=== PATIENT | female | born 1970 | race Caucasian/White ===

== ENCOUNTER 2017-02-27 07:39 | Emergency (ER) ==
[2017-02-27 07:41] VITALS: BMI 24.3
[2017-02-27 07:49] VITALS: BP 148/95; TEMP 96.9
[2017-02-27] MEDS ORDERED: DECADRON 4 MG/ML SDV IM STA (07:50)
[2017-02-27] MEDS ORDERED: BENADRYL IM STA (07:50)
--- NOTE | 2017-02-27 07:56 | ED.PDOC ---
General ED Provider: Dr. NIEVES ALVA Chief Complaint: Non-specific Complaint Stated Complaint: rash on the chest, arms, legs Time Seen by Physician: 08:00 (was in an abandoned building has a puritic rash) Mode of Arrival: Walk-In Information Source: Patient Exam Limitations: No limitations Nursing and Triage Documentation Reviewed and Agree: Yes (spent sometine in aabandoned building .) Skin Complaint Exam - Skin Rash/Itching Complaint/Exam Onset/Duration: 2 days Symptoms Are: Still present Initial Severity: Moderate Current Severity: Moderate Location: arms, legs chest Potential Exposures: Reports: Unknown Aggravating: Reports: None Alleviating: Reports: None Associated Signs and Symptoms: Denies: Difficulty breathing, Fever, Chills Skin Findings: Present: Urticaria Differential Diagnoses: Allergic Reaction, Contact Dermatitis Review of Systems - Review Of Systems Constitutional: Reports: No symptoms Eyes: Reports: No symptoms Ears, Nose, Mouth, Throat: Reports: No symptoms Respiratory: Reports: No symptoms Cardiac: Reports: No symptoms GI: Reports: No symptoms : Reports: No symptoms Musculoskeletal: Reports: No symptoms Skin: Reports: Rash Neurological: Reports: No symptoms Endocrine: Reports: No symptoms Hematologic/Lymphatic: Reports: No symptoms All Other Systems: Reviewed and Negative Past Medical History - Past Medical History Previously Healthy: Yes Endocrine: Reports: None Cardiovascular: Reports: None Respiratory: Reports: None Hematological: Reports: None Gastrointestinal: Reports: None Genitourinary: Reports: None Neuro/Psych: Reports: Anxiety, Depression Musculoskeletal: Reports: Arthritis Cancer: Reports: None Last Menstrual Period: n/a - Surgical History General Surgical History: Reports: Hysterectomy, Other (Brain aneurysm) - Family History Family History: Reports: Unknown - Social History Smoking Status: Current every day smoker Hx Substance Use: No Alcohol Screening: None Physical Exam - Physical Exam Appearance: Well-appearing, No pain distress, Well-nourished Eyes: BRANDON, EOMI, Conjunctiva clear ENT: Ears normal, Nose normal, Oropharynx normal Respiratory: Airway patent, Breath sounds clear, Breath sounds equal, Respirations nonlabored Cardiovascular: RRR, Pulses normal, No rub, No murmur GI/: Soft, Nontender, No masses, Bowel sounds normal, No Organomegaly Musculoskeletal: Normal strength, ROM intact, No edema, No calf tenderness Skin: Warm, Dry (several abrasion noted a urticarial rrash noted ) Neurological: Sensation intact, Motor intact, Reflexes intact, Cranial nerves intact, Alert, Oriented Psychiatric: Affect appropriate, Mood appropriate Critical Care Note - Critical Care Note Total Time (mins): 0 Course - Course Orders, Labs, Meds: Orders Category Date Time Status Dexamethasone 4 mg/ml Inj [Decadron 4 mg/ml Sdv] MEDS 02/27/17 07:50 Stat 4 mg IM ONCE STA Diphenhydramine Inj [Benadryl] MEDS 02/27/17 07:50 Stat 25 mg IM ONCE STA Medications Discontinued Medications Generic Name Dose Route Start Last Admin Trade Name Dayna PRN Reason Stop Dose Admin Dexamethasone Sodium Phosphate 4 mg 02/27/17 07:50 Decadron 4 Mg/Ml Sdv IM 02/27/17 07:51 ONCE STA Diphenhydramine HCl 25 mg 02/27/17 07:50 Benadryl IM 02/27/17 07:51 ONCE STA Vital Signs: Temp Pulse Resp BP Pulse Ox 02/27/17 07:42 96.9 F L 100 H 16 148/95 H 94 L Departure - Departure Time of Disposition: 07:58 (pt refused labs ) Disposition: HOME SELF-CARE Discharge Problem: Rash due to allergy Contact dermatitis Qualifiers: Contact dermatitis type: allergic Contact dermatitis trigger: unspecified trigger Qualifier Code: (L23.9) Allergic contact dermatitis, unspecified cause Instructions: Acute Rash (ED) Condition: Good Pt referred to PMD for follow-up: No Prescriptions: Prednisone 20 mg PO DAILYWM #4 tablet Allergies/Adverse Reactions: Allergies No Known Allergies Allergy (Verified 02/27/17 07:45) Home Medications: Ambulatory Orders Gabapentin 600 mg PO TID 09/12/13 Ibuprofen 600 mg PO BID 09/12/13 Prednisone 20 mg PO DAILYWM #4 tablet 02/27/17 Disposition Discussed With: Patient
== END 2017-02-27 08:24 | disposition home or self-care (01) ==
LOC: ED 07:39
DX: L23.9 Allergic contact dermatitis, unspecified cause (principal); F17.210 Nicotine dependence, cigarettes, uncomplicated
CPT/HCPCS: 96372; 99282

== ENCOUNTER 2017-12-02 15:48 | Outpatient (CLI) ==
--- NOTE | 2017-12-02 16:30 | DI ---
EXAM: RIGHT FOOT, 3 VIEWS HISTORY: Right foot pain FINDINGS: Bone and joint structures appear normal. No displaced fracture or joint dislocation is s een. There is no joint effusion. Soft tissues within normal limits. IMPRESSION: Within normal limits.
== END 2017-12-02 15:49 | disposition home or self-care (01) ==
LOC: RAD 15:48
PROVIDERS: ATTEND Nurse Practitioner Family
DX: M79.671 Pain in right foot (principal); S99.921A Unspecified injury of right foot, initial encounter; Z00.00 Encounter for general adult medical examination without abnormal findings

== ENCOUNTER 2017-12-04 16:34 | Emergency (ER) ==
[2017-12-04 16:40] VITALS: BP 112/74; TEMP 99.1; BMI 23.6
== END 2017-12-04 18:13 | disposition left against medical advice (07) ==
LOC: ED 16:34
DX: S99.921A Unspecified injury of right foot, initial encounter (principal); W22.8XXA Striking against or struck by other objects, initial encounter; F17.210 Nicotine dependence, cigarettes, uncomplicated
CPT/HCPCS: 99281

== ENCOUNTER 2018-01-24 00:10 | Outpatient (CLI) ==
[2017-12-20 17:45] VITALS: BMI 23.6
== END 2018-01-24 00:11 | disposition short-term general hospital (02) ==
LOC: AMBL 00:10
PROVIDERS: ATTEND Family Medicine
DX: R45.851 Suicidal ideations (principal)

== ENCOUNTER 2018-03-04 15:14 | Outpatient (CLI) ==
[2017-12-20 17:45] VITALS: BMI 23.6
== END 2018-03-04 15:15 | disposition home or self-care (01) ==
LOC: RHC-LAB 15:14
PROVIDERS: ATTEND Nurse Practitioner Family
DX: Z00.00 Encounter for general adult medical examination without abnormal findings (principal)
CPT/HCPCS: 36415; 80053; 80061; 84443; 85025

== ENCOUNTER 2018-09-11 17:46 | Emergency (ER) ==
[2018-09-11 18:04] VITALS: TEMP 98; BMI 23.7
[2018-09-11 18:07] VITALS: BP 113/87
--- NOTE | 2018-09-11 18:07 | ED.PDOC ---
General ED Provider: Dr. NIEVES ALVA Chief Complaint: Behavioral Complaint Stated Complaint: alcohol and substance abuse , pt stated she would like to get help and go through a rehab program Time Seen by Physician: 18:00 (seen with Anitra at all times denied suicidal ideation) Mode of Arrival: Walk-In Information Source: Patient Exam Limitations: No limitations Primary Care Provider: CARLOS MULLINS Nursing and Triage Documentation Reviewed and Agree: Yes Does patient meet sepsis criteria?: No System Inflammatory Response Syndrome: Not Applicable Sepsis Protocol: For patient's 13 years and over: Temp is 96.8 and below OR 101 and greater Pulse >90 BPM Resp >20/minute Acutely Altered Mental Status Are patient's symptoms suggestive of a new infection, such as: -Pneumonia -Skin, Soft Tissue -Endocarditis -UTI -Bone, Joint Infection -Implantable Device -Acute Abdominal Infection -Wound Infection -Meningitis -Blood Stream Catheter Infection -Unknown Psychological Complaint Exam - Substance Abuse/Use Complaint/Exam Patient Complains Of Substance Abuse Of: Other (alcohol pain meds , pt has lost her kids([id number]) to [employer] ) Patient Complains Of Substance Withdrawal Of: Alcohol, Other Onset/Duration: chronic issue Abuse Began: chronic attends a pain mangement program Increased Use Since: recently after loss of custody of her twins Timing: Daily Initial Severity: Moderate Current Severity: Moderate Character: Present: Depressed, Anxious, Frustrated Aggravating: Reports: Recent stress (see above) Alleviating: Reports: None Associated Signs And Symptoms: Reports: Sleep disturbance, Appetite change, Social withdrawal, Social isolation, Agitated. Denies: Hostile, Confused, Hallucinating, Paranoid behavior, Palpitations, Short of air, Chest pain, Delirium Tremens, Diaphoretic, Tremulous, Nausea, Vomiting, Diarrhea Related History: Denies: Suicidal thoughts, Suicidal plan, Suicidal gestures, Homicidal thoughts, Homicidal plan, Homicidal gestures, Prior attempts Last Used Alcohol: today Last Used Drugs: 1 day ago does not abuse IV MEDS Completed Suicide Risk Factors: , Living alone Patient In Custody Of Police: No Social Withdrawal Present: Yes Social Isolation Present: Yes Prior Suicide Attempt: No Injury From Prior Suicide Attempt: No Patient Uncooperative For Exam: No Mood: Present: Agitated, Anxious Appearance: Present: Clean Thought Process: Present: Flight of ideas Insight: Present: Limited Memory: Impaired Judgement: Impaired Danger To Others: Yes Patient Medically Stable For: Psych evaluation Differential Diagnoses: Drug Abuse, Anxiety, Metabolic Disorder, Suicidal Risk Quality Indicator For Non-Traumatic Chest Pain/Syncope: EKG Performed Review of Systems - Review Of Systems Constitutional: Reports: No symptoms Eyes: Reports: No symptoms Ears, Nose, Mouth, Throat: Reports: No symptoms Respiratory: Reports: No symptoms Cardiac: Reports: No symptoms GI: Reports: No symptoms : Reports: No symptoms Musculoskeletal: Reports: No symptoms Skin: Reports: No symptoms Neurological: Reports: Emotional problems Endocrine: Reports: No symptoms Hematologic/Lymphatic: Reports: No symptoms All Other Systems: Reviewed and Negative Past Medical History - Past Medical History Previously Healthy: Yes Endocrine: Reports: None Cardiovascular: Reports: None Respiratory: Reports: None Hematological: Reports: None Gastrointestinal: Reports: None Genitourinary: Reports: None Neuro/Psych: Reports: Anxiety, Depression Musculoskeletal: Reports: Arthritis Cancer: Reports: None Last Menstrual Period: hysterectomy - Surgical History General Surgical History: Reports: Hysterectomy, Other (Brain aneurysm) - Family History Family History: Reports: Unknown - Social History Smoking Status: Current every day smoker Hx Substance Use: Yes (Meth, ETOH) Alcohol Screening: None Physical Exam - Physical Exam Appearance: Well-appearing, No pain distress, Well-nourished Eyes: BRANDON, EOMI, Conjunctiva clear ENT: Ears normal, Nose normal, Oropharynx normal Respiratory: Airway patent, Breath sounds clear, Breath sounds equal, Respirations nonlabored Cardiovascular: RRR, Pulses normal, No rub, No murmur GI/: Soft, Nontender, No masses, Bowel sounds normal, No Organomegaly Musculoskeletal: Normal strength, ROM intact, No edema, No calf tenderness Skin: Warm, Dry, Normal color Neurological: Sensation intact, Motor intact, Reflexes intact, Cranial nerves intact, Alert, Oriented Psychiatric: Affect appropriate, Mood appropriate Critical Care Note - Critical Care Note Total Time (mins): 0 Course - Course Hematology/Chemistry: 09/11/18 18:35 09/11/18 18:35 Orders, Labs, Meds: Lab Review 09/11/18 09/11/18 09/11/18 18:35 18:35 18:35 WBC 12.87 H RBC 4.45 Hgb 14.3 Hct 41.2 MCV 92.6 MCH 32.1 H MCHC 34.7 RDW Coeff of Miracle 12.3 Plt Count 244 Immature Gran % (Auto) 0.2 Neut % (Auto) 68.6 Lymph % (Auto) 19.7 Lyman % (Auto) 7.5 Eos % (Auto) 3.7 Baso % (Auto) 0.3 Immature Gran # (Auto) 0.0 Neut # (Auto) 8.8 H Lymph # (Auto) 2.5 Lyman # (Auto) 1.0 Eos # (Auto) 0.5 Baso # (Auto) 0.0 Sodium 139.1 Potassium 3.68 Chloride 104.2 Carbon Dioxide 30.3 H Anion Gap 8.28 BUN 10.3 Creatinine 0.58 L Estimated GFR (MDRD) 111.00 BUN/Creatinine Ratio 17.75 Glucose 93.2 Calcium 8.95 Total Bilirubin 0.37 AST 44.2 H ALT 28.0 Alkaline Phosphatase 51.8 Total Protein 7.86 Albumin 4.21 Globulin 3.65 Albumin/Globulin Ratio 1.15 Serum , Qual Urine Color Urine Clarity Urine pH Ur Specific [place] Urine Protein Urine Glucose (UA) Urine Ketones Urine Blood Urine Nitrite Urine Bilirubin Urine Urobilinogen Ur Leukocyte Esterase Salicylate Level mg/dL < 1.00 Urine Opiates Screen Negative Ur Oxycodone Screen Negative Urine Methadone Screen Negative Ur Propoxyphene Screen Negative Acetaminophen < 10.0 L Ur Barbiturates Screen Negative U Tricyclic Antidepress Negative Ur Phencyclidine Scrn Negative Ur Amphetamine Screen Positive U Methamphetamines Scrn Negative U Benzodiazepines Scrn Negative Urine Cocaine Screen Negative U Cannabinoids Screen Negative Plasma/Serum Alcohol 124.5 H 09/11/18 09/11/18 18:35 18:35 WBC RBC Hgb Hct MCV MCH MCHC RDW Coeff of Miracle Plt Count Immature Gran % (Auto) Neut % (Auto) Lymph % (Auto) Lyman % (Auto) Eos % (Auto) Baso % (Auto) Immature Gran # (Auto) Neut # (Auto) Lymph # (Auto) Lyman # (Auto) Eos # (Auto) Baso # (Auto) Sodium Potassium Chloride Carbon Dioxide Anion Gap BUN Creatinine Estimated GFR (MDRD) BUN/Creatinine Ratio Glucose Calcium Total Bilirubin AST ALT Alkaline Phosphatase Total Protein Albumin Globulin Albumin/Globulin Ratio Serum , Qual Negative Urine Color Yellow Urine Clarity Clear Urine pH 6.5 Ur Specific [place] <=1.005 Urine Protein Negative Urine Glucose (UA) Negative Urine Ketones Negative Urine Blood Negative Urine Nitrite Negative Urine Bilirubin Negative Urine Urobilinogen 0.2 Ur Leukocyte Esterase Negative Salicylate Level mg/dL Urine Opiates Screen Ur Oxycodone Screen Urine Methadone Screen Ur Propoxyphene Screen Acetaminophen Ur Barbiturates Screen U Tricyclic Antidepress Ur Phencyclidine Scrn Ur Amphetamine Screen U Methamphetamines Scrn U Benzodiazepines Scrn Urine Cocaine Screen U Cannabinoids Screen Plasma/Serum Alcohol Orders Category Date Time Status EKG-(ED ONLY) Stat CARDIO 09/11/18 18:13 Completed Mental Health Consult [ED MENTAL HEALTH CONSULT] .ONCE EMERGENCY 09/11/18 19: 18 Active ACETAMINOPHEN Stat LAB 09/11/18 18:35 Completed BLOOD ALCOHOL Stat LAB 09/11/18 18:35 Completed CBC W/ AUTO DIFF Stat LAB 09/11/18 18:35 Completed COMPREHENSIVE METABOLIC PANEL Stat LAB 09/11/18 18:35 Completed DRUG SCREEN, URINE, RAPID Stat LAB 09/11/18 18:35 Completed SALICYLATE Stat LAB 09/11/18 18:35 Completed SERUM Stat LAB 09/11/18 18:35 Completed URINALYSIS C & S IF INDICATED Stat LAB 09/11/18 18:35 Completed Vital Signs: Temp Pulse Resp BP Pulse Ox 09/11/18 18:13 104 H 98 09/11/18 18:07 113/87 09/11/18 17:48 98.0 F 120 H 20 153/111 H 99 Departure - Departure Time of Disposition: 19:00 Disposition: HOME SELF-CARE Discharge Problem: Problem behavior, Alcohol abuse, Substance abuse Instructions: Abuse of Alcohol (ED), Opioid Withdrawal (ED), Medical Clearance for Substance Abuse Treatment (ED), Narcotic Withdrawal (ED), Narcotic Use Disorder (ED), Opioid Use Disorder (ED) Condition: Good Pt referred to PMD for follow-up: Yes IPMP verified?: No Additional Instructions: Please call your Family Physician as soon as possible to schedule a follow-up appointment. Allergies/Adverse Reactions: Allergies No Known Allergies Allergy (Verified 12/04/17 16:40) Home Medications: Ambulatory Orders Gabapentin 600 mg PO TID 09/12/13 Ibuprofen 600 mg PO BID 09/12/13
== END 2018-09-11 22:58 | disposition home or self-care (01) ==
LOC: ED 17:46
DX: F19.10 Other psychoactive substance abuse, uncomplicated (principal); F10.10 Alcohol abuse, uncomplicated; F17.210 Nicotine dependence, cigarettes, uncomplicated; R46.89 Other symptoms and signs involving appearance and behavior
CPT/HCPCS: 36415; 80053; 80306; 80307; 81001; 84703; 85025; 93005; 93010; 99284

== ENCOUNTER 2018-09-17 06:09 | Outpatient (CLI) | END 2018-09-17 06:23 | disposition short-term general hospital (02) | LOC: AMBL 06:09 | PROVIDERS: ATTEND Family Medicine | DX: R45.851 Suicidal ideations (principal) ==

== ENCOUNTER 2018-11-16 15:29 | Outpatient (CLI) ==
--- NOTE | 2018-11-16 16:19 | DI ---
EXAM: Two views of the left hip. History: Left hip pain and trauma. Comparison: Left hip radiograph 05/22/2016 Findings: No acute fracture or dislocation. Left hip joint space is preserved. Impression: No acute osseous abnormality and no degenerative joint disease of the left hip
== END 2018-11-16 15:30 | disposition home or self-care (01) ==
LOC: LAB 15:29
PROVIDERS: ATTEND Nurse Practitioner Family
DX: M25.552 Pain in left hip (principal); Z86.19 Personal history of other infectious and parasitic diseases
CPT/HCPCS: 36415; 80074; 86708; 87522

== ENCOUNTER 2018-12-02 04:54 | Emergency (ER) ==
[2018-12-02 05:10] VITALS: BMI 24.4
--- NOTE | 2018-12-02 05:49 | ED.PDOC ---
General ED Provider: Dr. ZAIRA SILVA-ER Chief Complaint: Psychiatric Complaint Stated Complaint: im depressed Time Seen by Physician: 04:55 Mode of Arrival: Walk-In Information Source: Patient Exam Limitations: No limitations Primary Care Provider: CARLOS MULLINS Nursing and Triage Documentation Reviewed and Agree: Yes Does patient meet sepsis criteria?: No If yes, has appropriate treatment been initiated?: No System Inflammatory Response Syndrome: Not Applicable Sepsis Protocol: For patient's 13 years and over: Temp is 96.8 and below OR 101 and greater Pulse >90 BPM Resp >20/minute Acutely Altered Mental Status Are patient's symptoms suggestive of a new infection, such as: -Pneumonia -Skin, Soft Tissue -Endocarditis -UTI -Bone, Joint Infection -Implantable Device -Acute Abdominal Infection -Wound Infection -Meningitis -Blood Stream Catheter Infection -Unknown Psychological Complaint Exam - Psychiatric Complaint/Exam Patient Complains Of: Present: Depression Symptoms Are: Still present Initial Severity: Mild Current Severity: Mild Character: Present: Depressed Associated Signs And Symptoms: Reports: Sleep disturbance Patient In Custody Of Police: No Social Withdrawal Present: No Social Isolation Present: No Prior Suicide Attempt: No Injury From Prior Suicide Attempt: No Patient Uncooperative For Exam: No Mood: Present: Depressed Thought Process: Present: Logical Insight: Present: Good Memory: Intact Judgement: Normal Danger To Others: No Patient Medically Stable For: Psych evaluation, Referral, Transfer Differential Diagnoses: Depression Review of Systems - Review Of Systems Constitutional: Reports: No symptoms Eyes: Reports: No symptoms Ears, Nose, Mouth, Throat: Reports: No symptoms Respiratory: Reports: No symptoms Cardiac: Reports: No symptoms GI: Reports: No symptoms : Reports: No symptoms Musculoskeletal: Reports: No symptoms Skin: Reports: No symptoms Neurological: Reports: No symptoms Endocrine: Reports: No symptoms Hematologic/Lymphatic: Reports: No symptoms All Other Systems: Reviewed and Negative Past Medical History - Past Medical History Previously Healthy: Yes Endocrine: Reports: None Cardiovascular: Reports: None Respiratory: Reports: None Hematological: Reports: None Gastrointestinal: Reports: None Genitourinary: Reports: None Neuro/Psych: Reports: Anxiety, Depression Musculoskeletal: Reports: Arthritis Cancer: Reports: None Last Menstrual Period: PT HAS HAD A HYSTERECTOMY - Surgical History General Surgical History: Reports: Hysterectomy, Other (Brain aneurysm) - Family History Family History: Reports: Unknown - Social History Smoking Status: Current every day smoker, Heavy tobacco smoker Hx Substance Use: Yes (Meth, ETOH) Alcohol Screening: Heavy - Immunizations Tetanus Shot up to Date: (UNKNOWN) Physical Exam - Physical Exam Appearance: Well-appearing, No pain distress, Well-nourished Eyes: BRANDON ENT: Ears normal, Nose normal, Oropharynx normal Neck: Supple Respiratory: Airway patent, Breath sounds clear, Breath sounds equal, Respirations nonlabored Cardiovascular: RRR, Pulses normal, No rub, No murmur GI/: Soft, Nontender, No masses, Bowel sounds normal, No Organomegaly Musculoskeletal: Normal strength, ROM intact, No edema, No calf tenderness Skin: Warm, Dry, Normal color Neurological: Sensation intact, Motor intact, Reflexes intact, Cranial nerves intact, Alert, Oriented Psychiatric: Affect appropriate, Mood appropriate Critical Care Note - Critical Care Note Total Time (mins): 0 Course - Course Hematology/Chemistry: 12/02/18 05:20 12/02/18 05:20 Orders, Labs, Meds: Lab Review 12/02/18 12/02/18 12/02/18 05:20 05:20 05:25 WBC 11.93 H RBC 4.83 Hgb 15.5 Hct 45.3 MCV 93.8 MCH 32.1 H MCHC 34.2 RDW Coeff of Miracle 13.3 Plt Count 275 Immature Gran % (Auto) 0.3 Neut % (Auto) 68.0 Lymph % (Auto) 20.0 [place] % (Auto) 9.0 Eos % (Auto) 2.3 Baso % (Auto) 0.4 Immature Gran # (Auto) 0.0 Neut # (Auto) 8.1 H Lymph # (Auto) 2.4 [place] # (Auto) 1.1 Eos # (Auto) 0.3 Baso # (Auto) 0.1 Sodium 141.7 Potassium 3.51 Chloride 106.5 Carbon Dioxide 24.8 Anion Gap 13.91 BUN 8.8 Creatinine 0.56 L Estimated GFR (MDRD) 116.00 BUN/Creatinine Ratio 15.71 Glucose 106.8 H Calcium 9.61 Total Bilirubin 0.86 AST 18.7 ALT 22.0 Alkaline Phosphatase 36.4 L Total Protein 8.04 Albumin 4.40 Globulin 3.64 Albumin/Globulin Ratio 1.20 TSH Urine Color Urine Clarity Urine pH Ur Specific [place] Urine Protein Urine Glucose (UA) Urine Ketones Urine Blood Urine Nitrite Urine Bilirubin Urine Urobilinogen Ur Leukocyte Esterase Salicylate Level mg/dL < 1.00 Urine Opiates Screen Negative Ur Oxycodone Screen Negative Urine Methadone Screen Negative Ur Propoxyphene Screen Negative Acetaminophen < 10.0 L Ur Barbiturates Screen Negative U Tricyclic Antidepress Negative Ur Phencyclidine Scrn Negative Ur Amphetamine Screen Negative U Methamphetamines Scrn Negative U Benzodiazepines Scrn Negative Urine Cocaine Screen Negative U Cannabinoids Screen Negative Plasma/Serum Alcohol < 10.0 Influ A Molecular Assay Influ B Molecular Assay 12/02/18 12/02/18 12/02/18 05:25 05:25 13:35 WBC RBC Hgb Hct MCV MCH MCHC RDW Coeff of Miracle Plt Count Immature Gran % (Auto) Neut % (Auto) Lymph % (Auto) [place] % (Auto) Eos % (Auto) Baso % (Auto) Immature Gran # (Auto) Neut # (Auto) Lymph # (Auto) [place] # (Auto) Eos # (Auto) Baso # (Auto) Sodium Potassium Chloride Carbon Dioxide Anion Gap BUN Creatinine Estimated GFR (MDRD) BUN/Creatinine Ratio Glucose Calcium Total Bilirubin AST ALT Alkaline Phosphatase Total Protein Albumin Globulin Albumin/Globulin Ratio TSH 0.740 Urine Color Yellow Urine Clarity Clear Urine pH 7.0 Ur Specific [place] 1.010 Urine Protein Negative Urine Glucose (UA) Negative Urine Ketones Negative Urine Blood Negative Urine Nitrite Negative Urine Bilirubin Negative Urine Urobilinogen 2.0 Ur Leukocyte Esterase Negative Salicylate Level mg/dL Urine Opiates Screen Ur Oxycodone Screen Urine Methadone Screen Ur Propoxyphene Screen Acetaminophen Ur Barbiturates Screen U Tricyclic Antidepress Ur Phencyclidine Scrn Ur Amphetamine Screen U Methamphetamines Scrn U Benzodiazepines Scrn Urine Cocaine Screen U Cannabinoids Screen Plasma/Serum Alcohol Influ A Molecular Assay Negative by naat Influ B Molecular Assay Negative by naat Orders Category Date Time Status EKG-(ED ONLY) Stat CARDIO 12/02/18 07:48 Completed Mental Health Consult [ED MENTAL HEALTH CONSULT] .ONCE EMERGENCY 12/02/18 05: 20 Active ACETAMINOPHEN Stat LAB 12/02/18 05:20 Completed BLOOD ALCOHOL Stat LAB 12/02/18 05:20 Completed CBC W/ AUTO DIFF Stat LAB 12/02/18 05:20 Completed COMPREHENSIVE METABOLIC PANEL Stat LAB 12/02/18 05:20 Completed DRUG SCREEN, URINE, RAPID Stat LAB 12/02/18 05:25 Completed FLU A/B MOLECULAR Stat LAB 12/02/18 13:35 Completed SALICYLATE Stat LAB 12/02/18 05:20 Completed TSH [THYROID STIMULATING HORMONE] Stat LAB 12/02/18 05:25 Completed URINALYSIS C & S IF INDICATED Stat LAB 12/02/18 05:[address] HEAD W/O CONTRAST Stat RADS 12/02/18 07:48 Completed Vital Signs: Temp Pulse Resp BP Pulse Ox 12/02/18 17:00 98.2 F 93 H 20 158/88 H 98 12/02/18 12:48 110 H 20 134/90 12/02/18 04:55 99.1 F 105 H 20 158/102 H 94 L Departure - Departure Time of Disposition: 09:41 Disposition: TSF TO PSYCH HOSP/UNIT Discharge Problem: Depression Instructions: Depression (ED) Condition: Good Pt referred to PMD for follow-up: Yes IPMP verified?: No Allergies/Adverse Reactions: Allergies No Known Allergies Allergy (Verified 12/02/18 05:08) Home Medications: Ambulatory Orders 1 [No Reported Medications] 12/02/18 Transfer Form Completed: Yes Discharge Problem: Depression Qualifiers: Depression Type: major depressive disorder Major depression recurrence: single episode Active/Remission status: currently active Major depression episode severity: moderate Qualified Code(s): F32.1 - Major depressive disorder, single episode, moderate
--- NOTE | 2018-12-02 08:54 | CT ---
EXAM: CT BRAIN HISTORY: Head pain TECHNIQUE: CT brain without intravenous contrast. 5-mm axial sections with Reformations. COMPARISON: 06/10/2016 FINDINGS: Postop changes of the right cranium and regional brain suggesting previous aneurysm repair. These ap pear stable. Visualized paranasal sinuses are clear. Mastoid air cells are aerated. There is no ev idence of recent large vessel distribution ischemic infarction, intracranial hemorrhage, mass or mass effect. There is no acute ventriculomegaly or subdural hematoma. IMPRESSION: 1. Postop changes within the brain and the right cranium appear stable. 2. No acute intracranial process identified.
[2018-12-02 17:35] VITALS: BP 158/88; TEMP 98.2
== END 2018-12-02 18:30 ==
LOC: ED 04:54
DX: F32.1 Major depressive disorder, single episode, moderate (principal); F17.210 Nicotine dependence, cigarettes, uncomplicated
CPT/HCPCS: 36415; 80053; 80306; 80307; 81001; 84443; 85025; 87502; 93005; 93010; 99285

== ENCOUNTER 2018-12-12 08:49 | Emergency (ER) ==
[2018-12-12 08:50] VITALS: BMI 23.7
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
[2018-12-12] MEDS ORDERED: SODIUM CHLORIDE 1,000 ML IV STA (09:10)
[2018-12-12] MEDS ORDERED: GEODON IM STA ×2 (09:47→12:24)
[2018-12-12] MEDS ORDERED: GEODON IM PRN (18:12)
[2018-12-12] MEDS ORDERED: SODIUM CHLORIDE 0.9%-KCL 20 MEQ 1,000 ML IV STA (19:18)
[2018-12-12] MEDS ORDERED: ATIVAN IVP STA ×2 (20:26→23:46)
[2018-12-13 04:46] VITALS: BP 118/76; TEMP 98.1
[2018-12-13] MEDS ORDERED: MOTRIN PO STA (06:51)
== END 2018-12-13 09:11 ==
LOC: ED 08:49
DX: F15.10 Other stimulant abuse, uncomplicated (principal); F17.210 Nicotine dependence, cigarettes, uncomplicated
CPT/HCPCS: 36415; 80053; 80306; 81001; 85025; 93005; 93010; 96360; 96361; 96372; 96374; 96376; 99285

== ENCOUNTER 2019-02-19 16:28 | Outpatient (CLI) | END 2019-02-19 16:29 | disposition home or self-care (01) | LOC: RHC-LAB 16:28 | PROVIDERS: ATTEND Nurse Practitioner Family | DX: L08.9 Local infection of the skin and subcutaneous tissue, unspecified (principal) | CPT/HCPCS: 87070; 87186 ==

== ENCOUNTER 2019-03-15 12:00 | Outpatient (CLI) | END 2019-03-15 12:17 | disposition short-term general hospital (02) | LOC: AMBL 12:00 | PROVIDERS: ATTEND Internal Medicine | DX: R45.851 Suicidal ideations (principal) ==

== ENCOUNTER 2019-05-11 23:21 | Emergency (ER) ==
[2019-05-11 23:36] VITALS: BMI 24.2
[2019-05-11] MEDS ORDERED: SODIUM CHLORIDE 1,000 ML IV STA (23:38)
[2019-05-11] MEDS ORDERED: LACTATED RINGERS 1,000 ML IV STA (23:42)
[2019-05-11] MEDS ORDERED: THIAMINE IVP STA (23:43)
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
[2019-05-12 06:50] VITALS: BP 128/76; TEMP 98.3
[2019-05-12] MEDS ORDERED: ATIVAN PO STA (10:34)
== END 2019-05-12 17:55 | disposition home or self-care (01) ==
LOC: ED 23:21
DX: F41.9 Anxiety disorder, unspecified (principal); F32.9 Major depressive disorder, single episode, unspecified; F41.0 Panic disorder [episodic paroxysmal anxiety]; R63.0 Anorexia; F17.210 Nicotine dependence, cigarettes, uncomplicated
CPT/HCPCS: 36415; 80053; 80306; 80307; 81001; 84443; 85025; 93005; 93010; 96361; 96374; 99284

== ENCOUNTER 2019-05-17 07:14 | Emergency (ER) ==
[2019-05-17 07:27] VITALS: BP 159/118; TEMP 99; BMI 24.5
[2019-05-17] MEDS ORDERED: TYLENOL PO STA (07:56)
[2019-05-17] MEDS ORDERED: K-DUR PO STA ×2 (08:27→11:34)
[2019-05-17] MEDS ORDERED: POTASSIUM CHLORIDE PREMIX RUN 10 MEQ in PREMIX 100 ML WATER 1 BAG IV STA (08:27)
[2019-05-17] MEDS ORDERED: POTASSIUM CHLORIDE PREMIX RUN 100 ML IV ONE (09:00)
[2019-05-17] MEDS ORDERED: SODIUM CHLORIDE 1,000 ML IV STA (09:02)
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
[2019-05-17] MEDS ORDERED: ATIVAN PO STA (19:21)
== END 2019-05-17 19:40 | disposition home or self-care (01) ==
LOC: ED 07:14
DX: R45.851 Suicidal ideations (principal); F32.9 Major depressive disorder, single episode, unspecified; F17.210 Nicotine dependence, cigarettes, uncomplicated
CPT/HCPCS: 36415; 80048; 80053; 80306; 80307; 81001; 84439; 84443; 84703; 85025; 93005; 93010; 96361; 96365; 99285

== ENCOUNTER 2019-06-24 07:40 | Emergency (ER) ==
[2019-06-24 07:51] VITALS: BP 147/91; TEMP 98.2; BMI 25.0
--- NOTE | 2019-06-24 08:09 | ED.PDOC ---
General ED Provider: Dr. ZAIRA HERNANDES Chief Complaint: Rash Stated Complaint: Rash and Itching. Has rash diffusely located about bilat inner arms up into axillary regions, lat chest, lower abdomen, groin and lower extremitiens Time Seen by Physician: 07:50 Mode of Arrival: Walk-In Information Source: Patient Exam Limitations: No limitations Primary Care Provider: CARLOS MULLINS Referred to ED by: PCP Seen Within Last 72 Hours for Same Complaint By: Clinic Nursing and Triage Documentation Reviewed and Agree: Yes Does patient meet sepsis criteria?: No System Inflammatory Response Syndrome: Not Applicable Sepsis Protocol: For patient's 13 years and over: Temp is 96.8 and below OR 101 and greater Pulse >90 BPM Resp >20/minute Acutely Altered Mental Status Are patient's symptoms suggestive of a new infection, such as: -Pneumonia -Skin, Soft Tissue -Endocarditis -UTI -Bone, Joint Infection -Implantable Device -Acute Abdominal Infection -Wound Infection -Meningitis -Blood Stream Catheter Infection -Unknown Skin Complaint Exam - Skin Rash/Itching Complaint/Exam Onset/Duration: 3-5 days Symptoms Are: Worse Initial Severity: Moderate Current Severity: Severe Location: B.L.U.E.(post>dorsal Surface) includ axilla, torso, groin, buttocks Potential Exposures: Reports: Mites, Scabies, Other (Grass) Prior Treatment: none Aggravating: Reports: Heat, Clothing Alleviating: Reports: None Associated Signs and Symptoms: Denies: Difficulty breathing, Fever, Chills Skin Findings: Present: Papules, Lesions, Stanley tracts Differential Diagnoses: Eczema, Scabies, Other (chiggers) Review of Systems - Review Of Systems Constitutional: Reports: No symptoms Eyes: Reports: No symptoms Ears, Nose, Mouth, Throat: Reports: No symptoms Respiratory: Reports: No symptoms Cardiac: Reports: No symptoms GI: Reports: No symptoms : Reports: No symptoms Musculoskeletal: Reports: No symptoms Skin: Reports: Lesions, Rash Neurological: Reports: No symptoms Endocrine: Reports: No symptoms Hematologic/Lymphatic: Reports: No symptoms All Other Systems: Reviewed and Negative Past Medical History - Past Medical History Previously Healthy: No (Homeless/) Endocrine: Reports: None Cardiovascular: Reports: None Respiratory: Reports: None Hematological: Reports: None Gastrointestinal: Reports: None Genitourinary: Reports: None Neuro/Psych: Reports: Anxiety, Depression, Other (Homeless) Musculoskeletal: Reports: Arthritis Cancer: Reports: None Last Menstrual Period: hysterectomy Other Pertinent Past Medical History: Alcohol intoxication. - Surgical History General Surgical History: Reports: Hysterectomy, Other (Brain aneurysm) - Family History Family History: Reports: Unknown - Social History Smoking Status: Current every day smoker, Heavy tobacco smoker Hx Substance Use: Yes (Meth, ETOH) Alcohol Screening: Heavy Physical Exam - Physical Exam Appearance: Ill-appearing Ill-appearing: Mild Pain Distress: Mild Eyes: BRANDON, EOMI, Conjunctiva clear ENT: Ears normal, Nose normal, Oropharynx normal Neck: Supple Respiratory: Airway patent, Breath sounds clear, Breath sounds equal, Respirations nonlabored Cardiovascular: RRR, Pulses normal, No rub, No murmur GI/: Soft, Nontender, No masses, Bowel sounds normal, No Organomegaly Skin: Warm, Dry (Multiple small papular lesion about Bilat Upper Extremities posterior aspect /axillary region down dorsal surface BL forearms, buttocks and inguinal regon ) Neurological: Sensation intact, Motor intact, Reflexes intact, Cranial nerves intact, Alert, Oriented Psychiatric: Affect appropriate, Anxious Critical Care Note - Critical Care Note Total Time (mins): 0 Course - Course Orders, Labs, Meds: Orders Category Date Time Status Dexamethasone 4 mg/ml Inj [Decadron 4 mg/ml Sdv] MEDS 06/24/19 08:10 Discontinued 4 mg IM ONCE STA Diphenhydramine Inj [Benadryl] MEDS 06/24/19 08:11 Discontinued 25 mg IM ONCE STA Medications Discontinued Medications Generic Name Dose Route Start Last Admin Trade Name Freq PRN Reason Stop Dose Admin Dexamethasone Sodium Phosphate 4 mg 06/24/19 08:10 06/24/19 08:21 Decadron 4 Mg/Ml Sdv IM 06/24/19 08:11 4 mg ONCE STA Administration Diphenhydramine HCl 25 mg 06/24/19 08:11 06/24/19 08:20 Benadryl IM 06/24/19 08:12 25 mg ONCE STA Administration Vital Signs: Temp Pulse Resp BP Pulse Ox 06/24/19 07:42 98.2 F 109 H 20 147/91 H 92 L Departure - Departure Time of Disposition: 08:30 Disposition: HOME SELF-CARE Discharge Problem: Pruritic rash determined by examination, Scabies Instructions: Scabies (ED), Acute Rash (ED) Condition: Stable Pt referred to PMD for follow-up: Yes IPMP verified?: No Additional Instructions: [facility] Take a shower with soap([facility] or [place] [facility]) and water then apply prescribed Elimite Cream as directed to all huizar surface/ avoid eyes, mouth, mucosal surfaces -genital region Leave cream on for 8 hrs then rinse with water Take Benadryl for itching Follow up with PCP or ER as needed if condition fails to resolve Prescriptions: Diphenhydramine HCl 25 mg PO Q6HR #20 capsule Permethrin [Elimite Cream] 1 applic TP ONCE #1 tube Allergies/Adverse Reactions: Allergies No Known Allergies Allergy (Uncoded 06/24/19 07:51) Home Medications: Ambulatory Orders Diphenhydramine HCl 25 mg PO Q6HR #20 capsule 06/24/19 Permethrin [Elimite Cream] 1 applic TP ONCE #1 tube 06/24/19
[2019-06-24] MEDS ORDERED: DECADRON 4 MG/ML SDV IM STA (08:10)
[2019-06-24] MEDS ORDERED: BENADRYL IM STA (08:11)
== END 2019-06-24 08:49 | disposition home or self-care (01) ==
LOC: ED 07:40
DX: B86 Scabies (principal); F17.210 Nicotine dependence, cigarettes, uncomplicated
CPT/HCPCS: 96372; 99282

== ENCOUNTER 2019-07-01 17:03 | Emergency (ER) ==
[2019-07-01 17:04] VITALS: BMI 25.0
[2019-07-01 17:07] VITALS: BP 149/97; TEMP 96.8
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
== END 2019-07-01 17:41 | disposition home or self-care (01) ==
LOC: ED 17:03
DX: Z76.0 Encounter for issue of repeat prescription (principal); T14.8XXD Other injury of unspecified body region, subsequent encounter; W57.XXXA Bitten or stung by nonvenomous insect and other nonvenomous arthropods, initial encounter; F17.210 Nicotine dependence, cigarettes, uncomplicated
CPT/HCPCS: 99282

== ENCOUNTER 2019-07-11 21:49 | Emergency (ER) ==
[2019-07-11 21:56] VITALS: BP 166/98; TEMP 97.6; BMI 24.6
--- NOTE | 2019-07-11 22:16 | ED.PDOC ---
General ED Provider: Dr. SRINATH ZHONG Chief Complaint: Rash Stated Complaint: Rash all over the skin. but not on the webs of feet or hand. Thinks she has scabies again but just fininshed Permethin treatment yesterday. Also wants a prescription for bendryl. Time Seen by Physician: 22:10 Mode of Arrival: Walk-In Information Source: Patient Primary Care Provider: CARLOS MULLINS Nursing and Triage Documentation Reviewed and Agree: Yes Does patient meet sepsis criteria?: No System Inflammatory Response Syndrome: Not Applicable Sepsis Protocol: For patient's 13 years and over: Temp is 96.8 and below OR 101 and greater Pulse >90 BPM Resp >20/minute Acutely Altered Mental Status Are patient's symptoms suggestive of a new infection, such as: -Pneumonia -Skin, Soft Tissue -Endocarditis -UTI -Bone, Joint Infection -Implantable Device -Acute Abdominal Infection -Wound Infection -Meningitis -Blood Stream Catheter Infection -Unknown Skin Complaint Exam - Skin Rash/Itching Complaint/Exam Onset/Duration: 2 weeks Symptoms Are: Still present Initial Severity: Moderate Current Severity: Moderate Location: diffuse Potential Exposures: Reports: Mites, Scabies, Other (bed bugs ) Prior Treatment: Permethrine Associated Signs and Symptoms: Denies: Difficulty breathing, Fever, Chills Skin Findings: Present: Lesions (multiple skin scabs all over the body.) Differential Diagnoses: Contact Dermatitis, Scabies Review of Systems - Review Of Systems Constitutional: Reports: No symptoms Eyes: Reports: No symptoms Ears, Nose, Mouth, Throat: Reports: No symptoms Respiratory: Reports: No symptoms Cardiac: Reports: No symptoms GI: Reports: No symptoms : Reports: No symptoms Musculoskeletal: Reports: No symptoms Skin: Reports: Rash Neurological: Reports: No symptoms Endocrine: Reports: No symptoms Hematologic/Lymphatic: Reports: No symptoms All Other Systems: Reviewed and Negative Past Medical History - Past Medical History Previously Healthy: No (Homeless/) Endocrine: Reports: None Cardiovascular: Reports: None Respiratory: Reports: None Hematological: Reports: None Gastrointestinal: Reports: None Genitourinary: Reports: None Neuro/Psych: Reports: Anxiety, Depression, Other (Homeless) Musculoskeletal: Reports: Arthritis Cancer: Reports: None Last Menstrual Period: hysterectomy 2004 Other Pertinent Past Medical History: Alcohol intoxication. - Surgical History General Surgical History: Reports: Hysterectomy, Other (Brain aneurysm) - Family History Family History: Reports: Unknown - Social History Smoking Status: Current every day smoker, Heavy tobacco smoker Hx Substance Use: Yes (Meth, ETOH) Alcohol Screening: Heavy - Immunizations Tetanus Shot up to Date: Yes Physical Exam - Physical Exam Appearance: Well-appearing Pain Distress: None ENT: Nose normal Neck: Supple Skin: Warm, Dry Neurological: Alert, Oriented Psychiatric: Anxious Critical Care Note - Critical Care Note Total Time (mins): 0 Comments: Demanded a prescription for scabies treatment , I told her it was not indicated as she was treated twice and just finished one yesterday. I told her I will prescribe Benadryl. But she would not stay for it left. I told her to get OTC nix if she felt she still needed treatment and to follow up with PCP in 1-2 days. Course - Course Vital Signs: Temp Pulse Resp BP Pulse Ox 07/11/19 21:50 97.6 F 105 H 22 166/98 H 20 L Departure - Departure Time of Disposition: 22:16 Disposition: HOME SELF-CARE Discharge Problem: Pruritic rash, Neurodermatitis Instructions: Dermatitis (ED) Condition: Stable Pt referred to PMD for follow-up: Yes IPMP verified?: No Additional Instructions: Follow up with PCP in the next 1-2 days Get OTC medications as needed for itching Allergies/Adverse Reactions: Allergies No Known Allergies Allergy (Uncoded 07/11/19 21:56) Home Medications: Ambulatory Orders Permethrin 60 gm TP DIRECTED #1 cream..g. 07/01/19
== END 2019-07-11 22:30 | disposition home or self-care (01) ==
LOC: ED 21:49
DX: L28.0 Lichen simplex chronicus (principal); F17.210 Nicotine dependence, cigarettes, uncomplicated
CPT/HCPCS: 99282